=== PATIENT | female | born 2000 | race African-American/Black ===

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

== ENCOUNTER 2019-10-27 18:44 | Emergency (ER) | payer MEDICAID, OTHER ==
[~2019-10-27] VITALS: Ht 170.2 cm; Wt 94.8 kg
--- NOTE | 2019-10-27 19:16 | NUR ---
NIL X 1 WHEN CALLED FOR TRIAGE.
[2019-10-27 20:21] LABS: BASOPHILS # (AUTO) 0.05 x10^3/uL (0-0.3); BASOPHILS % (AUTO) 1 % (0-1); EOSINOPHILS # (AUTO) 0.15 x10^3/uL (0-0.8); EOSINOPHILS % (AUTO) 2 % (1-7); LYMPHOCYTES # (AUTO) 3.59 x10^3/uL (1-6.1); LYMPHOCYTES % (AUTO) 37 % (22-44); MD NO; MEAN CORPUSCULAR HEMOGLOBIN 28.7 pg (27.0-34.8); MEAN CORPUSCULAR HGB CONC 33.1 g/dL (32.4-35.8); MEAN CORPUSCULAR VOLUME 86.5 fL (80-100); MONOCYTES # (AUTO) 0.71 x10^3/uL (0-1.4); MONOCYTES % (AUTO) 7 % (2-9); NEUTROPHILS % (AUTO) 54 % (42-75); PLATELET COUNT 249 x10^3/uL (130-400); RED BLOOD COUNT 4.87 x10^6/uL (3.82-5.3); RED CELL DISTRIBUTION WIDTH 13.5 % (9.6-15.2)
[2019-10-27 20:28] LABS: ALBUMIN 3.7 g/dL (3.4-5.0); ANION GAP 7 mmol/L (5-15); CALCIUM 8.6 mg/dL (8.5-10.1); CHLORIDE 111 mmol/L (98-107)
[2019-10-27 20:32] LABS: ALANINE AMINOTRANSFERASE 24 U/L (12-78); ALKALINE PHOSPHATASE 83 U/L (45-117); BILIRUBIN,TOTAL 0.3 mg/dL (0.2-1.0); CREATININE 0.88 mg/dL (0.55-1.02); TOTAL PROTEIN 7.6 g/dL (6.4-8.2)
[2019-10-27] MEDS ORDERED: HYDROcodone/APAP 5/325 TABLET ONE (21:14)
[2019-10-27 21:24] LABS: HCG UR SG 1.028 (1.003-1.030)
[2019-10-27 21:25] LABS: MICROSCOPIC INDICATED
[2019-10-27] MEDS ORDERED: HYDROcodone/APAP 5/325 TABLET PO ONE (21:30)
--- NOTE | 2019-10-27 22:12 | NUR ---
pt at ultrasound
[2019-10-27] MEDS ORDERED: ACYC-57 PO (22:21)
--- NOTE | 2019-10-27 22:21 | NUR ---
pt resting on gurney, monitors in place, csiderails up x2, call light within reach. awaiting u/s result
[2019-10-27 22:43] LABS: CLUE CELLS NONE SEEN (NONE SEEN)
[2019-10-27 22:44] LABS: WET PREP WBCS FEW (FEW)
[2019-10-27] MEDS ORDERED: CEFTRIAXONE 250 MG ONE (22:46)
[2019-10-27] MEDS ORDERED: AZITHROMYCIN 500 MG TABLET ONE (22:47)
[2019-10-27] MEDS ORDERED: AZITHROMYCIN 500 MG TABLET PO ONE (23:00)
[2019-10-27] MEDS ORDERED: CEFTRIAXONE 250 MG IM ONE (23:00)
[2019-10-27 23:41] VITALS: BP 109/84
== END 2019-10-27 23:43 | disposition home or self-care (01) ==
LOC: ED 23:26
DX: N30.00 Acute cystitis without hematuria (principal); F17.210 Nicotine dependence, cigarettes, uncomplicated
CPT/HCPCS: 36415; 76830; 80053; 81001; 81025; 85025; 87086; 87210; 87491; 87591; 87808; 96372; 99284; 99406; J0696